=== PATIENT | male | born 1960 | race African-American/Black ===

== ENCOUNTER 2020-03-30 05:35 | Emergency (ER) | payer MEDICARE, OTHER ==
[~2020-03-30] VITALS: Ht 185.4 cm; Wt 95.3 kg
[~2020-03-30 05:35] MED LIST: APRESOLINE50 MG ORAL; CATAPRES0.1 MG ORAL; KEPPRA500 M4 ORAL; LIORESAL20 MG ORAL; LOTENSIN20 MG ORAL; PEPCID20 MG ORAL; PLAVIX75 MG ORAL; ZOCOR40 MG ORAL
[2020-03-30] MEDS ORDERED: LORATADINE10 M1 PO (05:49)
[2020-03-30] MEDS ORDERED: VIAGRA100 MG PO (05:50)
[2020-03-30] MEDS ORDERED: LIPITOR80 MG ORAL (05:51)
[2020-03-30 06:00] VITALS: BP 151/98
[2020-03-30 06:15] LABS: BASOPHILS % (AUTO) 2.2 % (0.0-2.0); EOSINOPHILS % (AUTO) 3.7 % (0.0-3.0); HEMATOCRIT 48.3 % (42.0-52.0); HEMOGLOBIN 16.9 G/DL (14.2-18.0); LYMPHOCYTES % (AUTO) 30.5 % (20.0-45.0); MEAN CORPUSCULAR VOLUME 84 FL (80-99); MONOCYTES % (AUTO) 8.8 % (1.0-10.0); NEUTROPHILS % (AUTO) 54.8 % (45.0-75.0); PLATELET COUNT 210 K/UL (150-450); RED BLOOD COUNT 5.73 M/UL (4.70-6.10); RED CELL DISTRIBUTION WIDTH 15.7 % (11.6-14.8); WHITE BLOOD COUNT 3.9 K/UL (4.8-10.8)
[2020-03-30 06:22] LABS: ANION GAP 5 mmol/L (5-15); BLOOD UREA NITROGEN 9 mg/dL (7-18); CALCIUM 7.9 MG/DL (8.5-10.1); CARBON DIOXIDE 30 MMOL/L (21-32); CHLORIDE 105 MMOL/L (98-107); CREATININE 1.4 MG/DL (0.55-1.30); POTASSIUM 3.6 MMOL/L (3.5-5.1); SODIUM 140 MMOL/L (136-145)
[2020-03-30 06:35] LABS: ALANINE AMINOTRANSFERASE 76 U/L (12-78); ALBUMIN 3.5 G/DL (3.4-5.0); ALBUMIN/GLOBULIN RATIO 0.8 (1.0-2.7); ALKALINE PHOSPHATASE 98 U/L (46-116); ASPARTATE AMINO TRANSFERASE 37 U/L (15-37); BILIRUBIN,TOTAL 1.1 MG/DL (0.2-1.0)
[2020-03-30 06:41] LABS: BILIRUBIN,DIRECT 0.3 MG/DL (0.0-0.3)
--- NOTE | 2020-03-30 06:42 | Diagnostic Imaging Report ---
EXAM: XR Chest, 1 View CLINICAL HISTORY: WEAK TECHNIQUE: Frontal view of the chest. COMPARISON: No relevant prior studies available. FINDINGS: Lungs: Lungs are slightly hypoinflated. No airspace consolidation. No pulmonary edema. Pleural space: Unremarkable. No pneumothorax. Heart: Cardiac silhouette is slightly accentuated by low lung volumes though it is most likely within normal limits. Mediastinum: No mediastinal widening or shift. Bones/joints: No acute osseous abnormality. IMPRESSION: No evidence of acute cardiopulmonary abnormality.
--- NOTE | 2020-03-30 06:43 | Emergency Room Report ---
History of Present Illness General Chief Complaint: Generalized Weakness Source: Patient Present Illness HPI Disclaimer: Please note that this report is being documented using [employer] technology. This can lead to erroneous entry secondary to incorrect interpretation by the dictating instrument. HPI: 59-year-old male history of hypertension, hyperlipidemia, CVA with residual left-sided visual deficits, balance deficits and deconditioning requiring him to be wheelchair-bound at the moment presents for evaluation of generalized weakness. The patient states he awoke today feeling "sick." States she just feels he has no energy and globally weak. Denies changes in sensation, denies tingling or numbness. Denies headaches, nasal congestion, sore throat, chest pain, cough, congestion, shortness of breath, nausea, vomiting, diarrhea, abdominal pain, dysuria or hematuria. Patient states he is planning on going to physical therapy to address the deconditioning he suffered after his hospitalization for CVA. PMH: Cerebellar stroke, hypertension, hyperlipidemia, wheelchair-bound PSH: Reviewed Allergies: Denied Social Hx: Denied Allergies: Coded Allergies: No Known Allergies (Unverified , 04/04/14) COVID-19 Screening Contact w/high risk pt: No Experienced COVID-19 symptoms?: No COVID-19 Testing performed TREKKING GUIDE: Yes COVID-19 Screening: Negative COVID-19 COVID-19 Testing Source: outside facility 3 day ago Nursing Documentation-PMH Hx Hypertension: Yes Hx Cerebrovascular Accident: Yes - CVA X2, May and June of this year Hx Seizures: Yes Review of Systems All Other Systems: negative except mentioned in HPI Physical Exam Vital Signs Date Time Temp Pulse Resp B/P (MAP) Pulse Ox O2 Delivery O2 Flow Rate FiO2 03/30/20 05:37 98.2 76 16 176/110 (132) 97 Room Air General: Awake and alert, no acute distress HEENT: NC/AT. EOMI. Cardiovascular: RRR. S1 and S2 normal. No murmur appreciated Resp: Normal work of breathing. No cough, wheezing or crackles appreciated Abdomen: Abdomen is soft, nondistended. Nontender Skin: Intact. No abrasions, laceration or rash over the exposed skin MSK: Normal tone and bulk. Moving all extremities. No obvious deformity. Neuro: Awake and alert. Mentating appropriately. Medical Decision Making Diagnostic Impression: Primary Impression: Episode of generalized weakness ER Course This is a 59-year-old male presenting for evaluation of generalized weakness. Differential includes was not limited to dehydration, electrolyte abnormality, ACS, infection, worsening deconditioning among others. He arrives afebrile in no acute distress. EKG shows nonspecific T wave changes but otherwise no ST segment elevations or signs of acute ischemia. Troponin negative. Other labs within normal limits. Patient appears to be at his baseline. Believe he is stable for outpatient follow-up. I discussed with his PMD Dr. Hardin who will follow him up in clinic tomorrow. Patient was able to transition to [facility]. Arranged for transportation home Laboratory Tests Test 03/30/20 06:00 03/30/20 07:54 White Blood Count 3.9 K/UL (4.8-10.8) L Red Blood Count 5.73 M/UL (4.70-6.10) Hemoglobin 16.9 G/DL (14.2-18.0) Hematocrit 48.3 % (42.0-52.0) Mean Corpuscular Volume 84 FL (80-99) Mean Corpuscular Hemoglobin 29.5 PG (27.0-31.0) Mean Corpuscular Hemoglobin Concent 35.0 G/DL (32.0-36.0) Red Cell Distribution Width 15.7 % (11.6-14.8) H Platelet Count 210 K/UL (150-450) Mean Platelet Volume 7.0 FL (6.5-10.1) Neutrophils (%) (Auto) 54.8 % (45.0-75.0) Lymphocytes (%) (Auto) 30.5 % (20.0-45.0) Monocytes (%) (Auto) 8.8 % (1.0-10.0) Eosinophils (%) (Auto) 3.7 % (0.0-3.0) H Basophils (%) (Auto) 2.2 % (0.0-2.0) H Sodium Level 140 MMOL/L (136-145) Potassium Level 3.6 MMOL/L (3.5-5.1) Chloride Level 105 MMOL/L (98-107) Carbon Dioxide Level 30 MMOL/L (21-32) Anion Gap 5 mmol/L (5-15) Blood Urea Nitrogen 9 mg/dL (7-18) Creatinine 1.4 MG/DL (0.55-1.30) H Estimated Glomerular Filtration Rate > 60 mL/min (>60) Glucose Level 118 MG/DL (74-106) H Calcium Level 7.9 MG/DL (8.5-10.1) L Total Bilirubin 1.1 MG/DL (0.2-1.0) H Direct Bilirubin 0.3 MG/DL (0.0-0.3) Aspartate Amino Transferase (AST) 37 U/L (15-37) Alanine Aminotransferase (ALT) 76 U/L (12-78) Alkaline Phosphatase 98 U/L (46-116) Troponin I 0.006 ng/mL (0.000-0.056) Total Protein 7.7 G/DL (6.4-8.2) Albumin 3.5 G/DL (3.4-5.0) Globulin 4.2 g/dL Albumin/Globulin Ratio 0.8 (1.0-2.7) L Urine Color Yellow Urine Appearance Clear Urine pH 7 (4.5-8.0) Urine Specific [place] 1.010 (1.005-1.035) Urine Protein 1+ (NEGATIVE) H Urine Glucose (UA) Negative (NEGATIVE) Urine Ketones Negative (NEGATIVE) Urine Blood 2+ (NEGATIVE) H Urine Nitrite Negative (NEGATIVE) Urine Bilirubin Negative (NEGATIVE) Urine Urobilinogen 4 MG/DL (0.0-1.0) H Urine Leukocyte Esterase Negative (NEGATIVE) Urine RBC 5-10 /HPF (0 - 0) H Urine WBC 0 /HPF (0 - 0) Urine Squamous Epithelial Cells Occasional /LPF Urine Bacteria Occasional /HPF (NONE) EKG Diagnostic Results Troponin ordered: Yes When was troponin ordered?: Mar 30, 2020 EKG Time: 05:59 Rate: normal Rhythm: NSR Other Impression Sinus rhythm, normal axis, normal intervals, QTC 438 ms, diffuse T wave inversions. No ST segment elevation identified Rhythm Strip Diag. Results Rhythm Strip Time: 05:59 EP Interpretation: yes Rate: 70s Rhythm: NSR, no PVC's, no ectopy Chest X-Ray Diagnostic Results Chest X-Ray Diagnostic Results : Chest X-Ray Ordered: Yes # of Views/Limited/Complete: 1 View Indication: Chest Pain EP Interpretation: Yes Interpretation: no consolidation, no effusion, no pneumothorax, no acute cardiopulmonary disease Impression: No acute disease Electronically Signed by: Electronically signed by Dr. Satish Means MD Last Vital Signs Date Time Temp Pulse Resp B/P (MAP) Pulse Ox O2 Delivery O2 Flow Rate FiO2 03/30/20 06:00 66 18 Room Air 03/30/20 06:00 98.2 151/98 97 Disposition: HOME, SELF-CARE Condition: Stable Referrals: NOT CHOSEN IPA/,REFERRING (PCP) Satish Means MD Mar 30, 2020 06:43
[2020-03-30 08:02] LABS: APPEARANCE,URINE CLEAR; BILIRUBIN, URINE NEGATIVE (NEGATIVE); GLUCOSE, URINE (UA) NEGATIVE (NEGATIVE); KETONES,URINE NEGATIVE (NEGATIVE); LEUKOCYTE ESTERASE ,URINE NEGATIVE (NEGATIVE); NITRITE,URINE NEGATIVE (NEGATIVE); PH,URINE 7 (4.5-8.0); PROTEIN,URINE 1+ (NEGATIVE); UROBILINOGEN,URINE 4 MG/DL (0.0-1.0)
[2020-03-30 08:05] LABS: COLOR,URINE YELLOW
[2020-03-30 08:24] VITALS: BP 147/99
[2020-03-30 10:29] VITALS: BP 142/96
[2020-03-30 12:40] VITALS: BP 145/108
[2020-03-30 13:40] VITALS: BP 133/67
[2020-03-30 14:56] VITALS: BP 136/70
== END 2020-03-30 14:56 | disposition home or self-care (01) ==
LOC: EDBD 05:35 → EDUNIT# 05:35 → EMR 05:46
DX: R53.1 Weakness (principal); I10 Essential (primary) hypertension; E78.5 Hyperlipidemia, unspecified; Z86.73 Personal history of transient ischemic attack (TIA), and cerebral infarction without residual deficits
CPT/HCPCS: 36415; 71045; 80053; 81003; 82248; 84484; 85025; 93005; 96374; 99284; J0360; J7040